=== PATIENT | female | born 1995 | race Caucasian/White ===

== ENCOUNTER 2020-07-21 12:57 | Emergency (ER) | payer BC ==
--- NOTE | 2020-07-21 13:27 | EDM.PDOC ---
ED HPI GENERAL MEDICAL PROBLEM - General Chief Complaint: General Stated Complaint: CHEST FEELING ODD Time Seen by Provider: 07/21/20 13:07 Source of Information: Reports: Patient History Limitations: Reports: No Limitations - History of Present Illness INITIAL COMMENTS - FREE TEXT/NARRATIVE: HISTORY AND PHYSICAL: History of present illness: Patient is a 25-year-old female who presents to the emergency room with complaints of "feeling strange". She states since 10 AM she has had this pulsatile feeling in her head and chest. She does mention that she recently ran out of her Cymbalta and has been without this medication for 3 days. She does feel there is a correlation. Denies any recent injury, trauma or falls. Patient denies any fever, chills, headache, change in vision, syncope or near syncope. Denies any chest pain, back pain, shortness of breath or cough. Denies any abdominal pain, nausea, vomiting, diarrhea, constipation or dysuria. No concern for . Has not noted any blood in urine or stool. Patient has been eating and drinking appropriately. Has not been around anyone who has been recently ill. Does have a history of anxiety and depression. Review of systems: As per history of present illness and below otherwise all systems reviewed and negative. Past medical history: As per history of present illness and as reviewed below otherwise noncontributory. Surgical history: As per history of present illness and as reviewed below otherwise noncontributory. Social history: See social history for further information Family history: As per history of present illness and as reviewed below otherwise noncontributory. Physical exam: General: Well developed and well nourished. Alert and orientated x 3. Nontoxic in appearance and in no acute distress. Vital signs are stable and have been reviewed by me. Nursing notes were reviewed. HEENT: Atraumatic, normocephalic, pupils equal and reactive bilaterally, negative for conjunctival pallor or scleral icterus, mucous membranes moist, TMs normal bilaterally, throat clear, neck supple, nontender, trachea midline. No drooling or trismus noted. No meningeal signs. No hot potato voice noted. Lungs: Clear to auscultation bilaterally. No wheezes, rales, or rhonchi. Chest nontender. Normal work of breathing, no accessory muscles used. Heart: S1S2, regular rate and rhythm without overt murmur, gallops, or rubs. No JVD. No peripheral edema Abdomen: Soft, nondistended, nontender. Skin: Intact, warm, dry. No lesions or rashes noted. Hematologic: No petechiae or purpra. Mucosa appropriate color and normal nail bed color and refill. Extremities: Atraumatic, moves all extremities per self without difficulty or deficits, negative for cords or calf pain. Neurovascular unremarkable. Neuro: Awake, alert, oriented. Cranial nerves II through XII unremarkable. Cerebellum unremarkable. Motor and sensory unremarkable throughout. Exam nonfocal. Psychiatric: Mood and affect are appropriate. Normal thought process. Answering questions appropriately. Notes: *This patient was seen and evaluated during the 2019 SARS-CoV-2 novel coronavirus pandemic period. Community viral transmission is ongoing at time of this encounter and the emergency department is operating under pandemic response procedures. Patient is a 25-year-old female who presents to the emergency room with complaints of generally feeling unwell feeling like she has "jolts" in her head and chest that started this morning. Coincidently she ran out of her Cymbalta 3 days ago and has not yet made an appointment to get this refilled. Patient's physical exam is unremarkable. I feel her symptoms are related to abruptly stopping the Cymbalta but will get basic lab work and give her some IV fluids. EKG is within normal limits. Basic lab work is within normal limits. Her symptoms are likely due to abruptly stopping her Cymbalta. I have talked with the patient about today's findings, in addition to providing specific details for plan of care. Reassessment at the time of disposition demonstrates that the patient is in no acute distress. The patient is stable for discharge, counseling was provided and we discussed in great detail signs and symptoms that would prompt them to return to the Emergency Department. Medication, follow up and supportive care measures were reviewed and discussed. Voices understanding and is agreeable to plan of care. Denies any further questions or concerns at this time. Diagnostics: CBC, CMP, UA Therapeutics: IV fluid, Cymbalta Prescription: Cymbalta Impression: Antidepressant discontinuation syndrome Plan: 1. You were evaluated today on an emergent basis. Your EKG and lab work is within normal limits. Your symptoms are likely withdrawal symptoms from abruptly stopping your Cymbalta. Please call your primary care provider to get the increased dose (the additional 30mg), your script is sent to pharmacy. 2. You can alternate Tylenol and ibuprofen as needed for pain and fever management. 3. We encourage you to follow up with your primary care provider and/or recommended specialist in the next few days for re-evaluation and further care/management. 4. If your symptoms should worsen, new symptoms develop or any of the signs and symptoms we discussed should arise please return to the emergency room or call 911 (if needed). Definitive disposition and diagnosis as appropriate pending reevaluation and review of above. - Related Data Allergies Allergy/AdvReac Type Severity Reaction Status Date / Time No Known Allergies Allergy Verified 07/21/20 13:28 Home Meds: Home Meds DULoxetine [Cymbalta] 60 mg PO DAILY 30 Days #30 cap 07/21/20 [Rx] ED ROS GENERAL - Review of Systems Review Of Systems: Comprehensive ROS is negative, except as noted in HPI. ED EXAM, GENERAL - Physical Exam Exam: See Below (See dictation) Course - Vital Signs Last Recorded V/S: Last Vital Signs Temp 97.1 F 07/21/20 13:29 Pulse 81 07/21/20 13:29 Resp 18 07/21/20 13:29 BP 131/68 07/21/20 13:29 Pulse Ox 99 07/21/20 13:29 - Orders/Labs/Meds Orders: Active Orders 24 hr Category Date Time Status EKG Documentation Completion [RC] STAT Care 07/21/20 13:08 Active COMPREHENSIVE METABOLIC PN,CMP [CHEM] Stat Lab 07/21/20 13:34 Ordered UA RFX JIGNESH AND CULT IF INDIC [URIN] Stat Lab 07/21/20 13:42 Received DULoxetine [Cymbalta] Med 07/21/20 13:35 Once 60 mg PO ONETIME ONE Sodium Chloride 0.9% [Normal Saline] 1,000 ml Med 07/21/20 13:34 Active IV STAT Medication Orders Duloxetine HCl (Duloxetine 60 Mg Cap) 60 mg PO ONETIME ONE Stop: 07/21/20 13:36 Last Admin: 07/21/20 13:52 Dose: 60 mg Documented by: MISSY Sodium Chloride (Normal Saline) 1,000 mls @ 999 mls/hr IV STAT ONE Stop: 07/21/20 14:34 Last Admin: 07/21/20 13:53 Dose: 999 mls/hr Documented by: MISSY Labs: Laboratory Tests 07/21/20 07/21/20 07/21/20 Range/Units 13:42 13:42 13:50 WBC 8.55 (4.0-11.0) K/uL RBC 5.29 (4.30-5.90) M/uL Hgb 14.8 (12.0-16.0) g/dL Hct 43.4 (36.0-46.0) % MCV 82.0 (80.0-98.0) fL MCH 28.0 (27.0-32.0) pg MCHC 34.1 (31.0-37.0) g/dL RDW Std Deviation 41.2 (28.0-62.0) fl RDW Coeff of Ifeanyi 14 (11.0-15.0) % Plt Count 277 (150-400) K/uL MPV 10.00 (7.40-12.00) fL Neut % (Auto) 59.8 (48.0-80.0) % Lymph % (Auto) 31.1 (16.0-40.0) % Banner % (Auto) 7.0 (0.0-15.0) % Eos % (Auto) 1.6 (0.0-7.0) % Baso % (Auto) 0.5 (0.0-1.5) % Neut # (Auto) 5.1 (1.4-5.7) K/uL Lymph # (Auto) 2.7 H (0.6-2.4) K/uL Banner # (Auto) 0.6 (0.0-0.8) K/uL Eos # (Auto) 0.1 (0.0-0.7) K/uL Baso # (Auto) 0.0 (0.0-0.1) K/uL Nucleated RBC % 0.0 /100WBC Nucleated RBCs # 0 K/uL Sodium (136-145) mmol/L Potassium (3.5-5.1) mmol/L Chloride (98-107) mmol/L Carbon Dioxide (21.0-32.0) mmol/L BUN (7.0-18.0) mg/dL Creatinine (0.6-1.0) mg/dL Est Cr Clr Drug Dosing mL/min Estimated GFR (MDRD) ml/min Glucose (74-106) mg/dL Calcium (8.5-10.1) mg/dL Total Bilirubin (0.2-1.0) mg/dL AST (15-37) IU/L ALT (14-63) IU/L Alkaline Phosphatase (46-116) U/L Total Protein (6.4-8.2) g/dL Albumin (3.4-5.0) g/dL Globulin (2.6-4.0) g/dL Albumin/Globulin Ratio (0.9-1.6) Urine Color YELLOW Urine Appearance CLEAR Urine pH 6.0 (5.0-8.0) Ur Specific [place] > 1.030 (1.001-1.035) Urine Protein NEGATIVE (NEGATIVE) mg/dL Urine Glucose (UA) NEGATIVE (NEGATIVE) mg/dL Urine Ketones NEGATIVE (NEGATIVE) mg/dL Urine Occult Blood MODERATE H (NEGATIVE) Urine Nitrite NEGATIVE (NEGATIVE) Urine Bilirubin NEGATIVE (NEGATIVE) Urine Urobilinogen 0.2 (<2.0) EU/dL Ur Leukocyte Esterase NEGATIVE (NEGATIVE) Urine RBC 4-6 (0-2/HPF) Urine WBC 0-1 (0-5/HPF) Ur Epithelial Cells FEW (NONE-FEW) Urine Bacteria FEW (NEGATIVE) Urine HCG, Qual NEGATIVE (NEGATIVE) 07/21/20 Range/Units 13:50 WBC (4.0-11.0) K/uL RBC (4.30-5.90) M/uL Hgb (12.0-16.0) g/dL Hct (36.0-46.0) % MCV (80.0-98.0) fL MCH (27.0-32.0) pg MCHC (31.0-37.0) g/dL RDW Std Deviation (28.0-62.0) fl RDW Coeff of Ifeanyi (11.0-15.0) % Plt Count (150-400) K/uL MPV (7.40-12.00) fL Neut % (Auto) (48.0-80.0) % Lymph % (Auto) (16.0-40.0) % Banner % (Auto) (0.0-15.0) % Eos % (Auto) (0.0-7.0) % Baso % (Auto) (0.0-1.5) % Neut # (Auto) (1.4-5.7) K/uL Lymph # (Auto) (0.6-2.4) K/uL Banner # (Auto) (0.0-0.8) K/uL Eos # (Auto) (0.0-0.7) K/uL Baso # (Auto) (0.0-0.1) K/uL Nucleated RBC % /100WBC Nucleated RBCs # K/uL Sodium 141 (136-145) mmol/L Potassium 4.1 (3.5-5.1) mmol/L Chloride 106 (98-107) mmol/L Carbon Dioxide 30.1 (21.0-32.0) mmol/L BUN 14 (7.0-18.0) mg/dL Creatinine 0.9 (0.6-1.0) mg/dL Est Cr Clr Drug Dosing 91.01 mL/min Estimated GFR (MDRD) > 60.0 ml/min Glucose 103 (74-106) mg/dL Calcium 8.8 (8.5-10.1) mg/dL Total Bilirubin 0.3 (0.2-1.0) mg/dL AST 11 L (15-37) IU/L ALT 26 (14-63) IU/L Alkaline Phosphatase 71 (46-116) U/L Total Protein 7.2 (6.4-8.2) g/dL Albumin 3.6 (3.4-5.0) g/dL Globulin 3.6 (2.6-4.0) g/dL Albumin/Globulin Ratio 1.0 (0.9-1.6) Urine Color Urine Appearance Urine pH (5.0-8.0) Ur Specific [place] (1.001-1.035) Urine Protein (NEGATIVE) mg/dL Urine Glucose (UA) (NEGATIVE) mg/dL Urine Ketones (NEGATIVE) mg/dL Urine Occult Blood (NEGATIVE) Urine Nitrite (NEGATIVE) Urine Bilirubin (NEGATIVE) Urine Urobilinogen (<2.0) EU/dL Ur Leukocyte Esterase (NEGATIVE) Urine RBC (0-2/HPF) Urine WBC (0-5/HPF) Ur Epithelial Cells (NONE-FEW) Urine Bacteria (NEGATIVE) Urine HCG, Qual (NEGATIVE) Meds: Medications Generic Name Dose Route Start Last Admin Trade Name Freq PRN Reason Stop Dose Admin Duloxetine HCl 60 mg 07/21/20 13:35 07/21/20 13:52 Duloxetine 60 Mg Cap PO 07/21/20 13:36 60 mg ONETIME ONE Administration Sodium Chloride 1,000 mls @ 999 mls/hr 07/21/20 13:34 07/21/20 13:53 Normal Saline IV 07/21/20 14:34 999 mls/hr STAT ONE Administration Departure - Departure Time of Disposition: 14:35 Disposition: Home, Self-Care 01 Clinical Impression: Antidepressant discontinuation syndrome Qualifiers: Encounter type: initial encounter Qualified Code(s): T43.205A - Adverse effect of unspecified antidepressants, initial encounter - Discharge Information Prescriptions: DULoxetine [Cymbalta] 60 mg PO DAILY 30 Days #30 cap Referrals: PCP,None [Primary Care Provider] - Forms: ED Department Discharge Additional Instructions: The following information is given to patients seen in the emergency department who are being discharged to home. This information is to outline your options for follow-up care. We provide all patients seen in our emergency department with a follow-up referral. The need for follow-up, as well as the timing and circumstances, are variable depending upon the specifics of your emergency department visit. If you don't have a primary care physician on staff, we will provide you with a referral. We always advise you to contact your personal physician following an emergency department visit to inform them of the circumstance of the visit and for follow-up with them and/or the need for any referrals to a consulting specialist. The emergency department will also refer you to a specialist when appropriate. This referral assures that you have the opportunity for follow-up care with a specialist. All of these measure are taken in an effort to provide you with optimal care, which includes your follow-up. Under all circumstances we always encourage you to contact your private physician who remains a resource for coordinating your care. When calling for follow-up care, please make the office aware that this follow-up is from your recent emergency room visit. If for any reason you are refused follow-up, please contact the [facility] Emergency Department at and asked to speak to the emergency department charge nurse. [facility] [address] [place] [address] [facility] [address] [place] [id number] Thank you for choosing the [facility] emergency department in Home for your medical needs today. It was a pleasure caring for you. Today you were seen in the emergency department for medical screening exam. 1. You were evaluated today on an emergent basis. Your EKG and lab work is within normal limits. Your symptoms are likely withdrawal symptoms from abruptly stopping your Cymbalta. Please call your primary care provider to get the increased dose (the additional 30mg), your script is sent to pharmacy. 2. You can alternate Tylenol and ibuprofen as needed for pain and fever management. 3. We encourage you to follow up with your primary care provider and/or recommended specialist in the next few days for re-evaluation and further care/management. 4. If your symptoms should worsen, new symptoms develop or any of the signs and symptoms we discussed should arise please return to the emergency room or call 911 (if needed). Sepsis Event Note (ED) - Focused Exam Vital Signs: Vital Signs Temp Pulse Resp BP Pulse Ox 07/21/20 13:29 97.1 F 81 18 131/68 99 - My Orders Last 24 Hours: My Active Orders 07/21/20 13:08 EKG Documentation Completion [RC] STAT 07/21/20 13:34 COMPREHENSIVE METABOLIC PN,CMP [CHEM] Stat Sodium Chloride 0.9% [Normal Saline] 1,000 ml IV STAT 07/21/20 13:35 DULoxetine [Cymbalta] 60 mg PO ONETIME ONE 07/21/20 13:42 UA RFX JIGNESH AND CULT IF INDIC [URIN] Stat - Assessment/Plan Last 24 Hours: My Active Orders 07/21/20 13:08 EKG Documentation Completion [RC] STAT 07/21/20 13:34 COMPREHENSIVE METABOLIC PN,CMP [CHEM] Stat Sodium Chloride 0.9% [Normal Saline] 1,000 ml IV STAT 07/21/20 13:35 DULoxetine [Cymbalta] 60 mg PO ONETIME ONE 07/21/20 13:42 UA RFX JIGNESH AND CULT IF INDIC [URIN] Stat
[2020-07-21] MEDS ORDERED: Sodium Chloride 0.9% 1,000 ML IV ONE (13:34)
[2020-07-21] MEDS ORDERED: DULoxetine 60 MG Cap PO ONE (13:35)
[2020-07-21 14:28] LABS: BLOOD UREA NITROGEN,BUN 14 mg/dL (7.0-18.0); CARBON DIOXIDE,CO2 30.1 mmol/L (21.0-32.0); CHLORIDE,CL 106 mmol/L (98-107); GLUCOSE RANDOM 103 mg/dL (74-106); POTASSIUM,K 4.1 mmol/L (3.5-5.1); SODIUM,NA 141 mmol/L (136-145)
== END 2020-07-21 15:22 | disposition home or self-care (01) ==
LOC: MW.ED 12:57
DX: R09.89 Other specified symptoms and signs involving the circulatory and respiratory systems (principal); T43.215A Adverse effect of selective serotonin and norepinephrine reuptake inhibitors, initial encounter
CPT/HCPCS: 36415; 80053; 81001; 81025; 85025; 93005; 99283; A9270; J7030

== ENCOUNTER 2021-03-19 17:40 | Emergency (ER) | payer BC ==
[2021-03-19] MEDS ORDERED: Sodium Chloride 0.9% 1,000 ML IV ONE (17:59)
[2021-03-19] MEDS ORDERED: Ketorolac 30 MG/ML SDV IVPUSH ONE (17:59)
[2021-03-19 18:36] LABS: BLOOD UREA NITROGEN,BUN 10 mg/dL (7.0-18.0); CARBON DIOXIDE,CO2 26.9 mmol/L (21.0-32.0); CHLORIDE,CL 103 mmol/L (98-107); GLUCOSE RANDOM 110 mg/dL (74-106); POTASSIUM,K 3.6 mmol/L (3.5-5.1); SODIUM,NA 137 mmol/L (136-145)
[2021-03-19 19:36] LABS: CORONAVIRUS COVID-19 NAA NEGATIVE (NEGATIVE); INFLUENZA A NAA NEGATIVE (NEGATIVE); INFLUENZA B NAA NEGATIVE (NEGATIVE)
== END 2021-03-19 19:50 | disposition home or self-care (01) ==
LOC: MW.ED 17:40
DX: R07.9 Chest pain, unspecified (principal); Z20.822 Contact with and (suspected) exposure to COVID-19
CPT/HCPCS: 0240U; 36415; 71045; 80053; 84484; 85025; 93005; 96374; 99285; J1885; J7030

== ENCOUNTER 2021-05-08 10:37 | Emergency (ER) | payer OTHER, BC ==
[2021-05-08] MEDS ORDERED: Lidocaine 1% 5 ML VIAL INJECT ONE (11:04)
[2021-05-08] MEDS ORDERED: Diphtheria,Pertussis(Acell),Tetanus Vaccine 0.5 ML Syringe IM ONE (11:20)
== END 2021-05-08 12:46 | disposition home or self-care (01) ==
LOC: MW.ED 10:37
DX: S61.512A Laceration without foreign body of left wrist, initial encounter (principal); Z72.0 Tobacco use; Z23 Encounter for immunization; W26.8XXA Contact with other sharp object(s), not elsewhere classified, initial encounter
CPT/HCPCS: 12002; 90471; 90715; 99282; 99282-25

== ENCOUNTER 2021-06-25 15:22 | Emergency (ER) | payer BC, OTHER ==
[2021-06-25] MEDS ORDERED: Sodium Chloride 0.9% 10 ML Syringe FLUSH PRN (16:40)
[2021-06-25] MEDS ORDERED: Sodium Chloride 0.9% 1,000 ML IV ONE (16:40)
[2021-06-25] MEDS ORDERED: Sodium Chloride 0.9% 2.5 ML Syringe FLUSH PRN (16:40)
[2021-06-25 17:39] LABS: BLOOD UREA NITROGEN,BUN 16 mg/dL (7.0-18.0); CARBON DIOXIDE,CO2 26.6 mmol/L (21.0-32.0); CHLORIDE,CL 103 mmol/L (98-107); GLUCOSE RANDOM 80 mg/dL (74-106); POTASSIUM,K 3.7 mmol/L (3.5-5.1); SODIUM,NA 139 mmol/L (136-145)
[2021-06-25] MEDS ORDERED: Cefdinir 300 MG Cap PO ONE (17:50)
== END 2021-06-25 18:45 | disposition home or self-care (01) ==
LOC: MW.ED 15:22
DX: R42 Dizziness and giddiness (principal); N39.0 Urinary tract infection, site not specified; F41.9 Anxiety disorder, unspecified; F32.A Depression, unspecified; Z79.899 Other long term (current) drug therapy
CPT/HCPCS: 36415; 80053; 81001; 84484; 84703; 85025; 93005; 96360; 99284; A9270; J3490; J7030

== ENCOUNTER 2021-07-03 13:27 | Emergency (ER) | payer BC ==
[2021-07-03] MEDS ORDERED: Sodium Chloride 0.9% 1,000 ML IV ONE (13:48)
[2021-07-03] MEDS ORDERED: cefTRIAXone 1 GM in Sodium Chloride 0.9% 50 ML IV ONE (13:49)
[2021-07-03 14:59] LABS: BLOOD UREA NITROGEN,BUN 10 mg/dL (7.0-18.0); CHLORIDE,CL 106 mmol/L (98-107); GLUCOSE RANDOM 120 mg/dL (74-106); POTASSIUM,K 3.8 mmol/L (3.5-5.1); SODIUM,NA 137 mmol/L (136-145)
== END 2021-07-03 15:55 | disposition home or self-care (01) ==
LOC: MW.ED 13:27
DX: N30.00 Acute cystitis without hematuria (principal); R04.0 Epistaxis
CPT/HCPCS: 36415; 71045; 71045-26; 80053; 81001; 81025; 84484; 85025; 85610; 85730; 87086; 93005; 96365; 99284-25; J0696; J7030

== ENCOUNTER 2024-04-22 11:05 | Emergency (ER) | payer SELFPAY ==
[2024-04-22] MEDS: Oxymetazoline 0.05% Nasal Spray 30 ML Bottle NAS ONE (11:43)
[2024-04-22] MEDS: Sodium Chloride 0.9% 1,000 ML IV ONE (12:55)
[2024-04-22 13:05] LABS: BASOPHILS ABSOLUTE AUTO 0.05 K/uL (0.00-0.20); BASOPHILS PERCENT AUTO 0.5 % (0.0-1.0); EOSINOPHILS ABSOLUTE AUTO 0.04 K/uL (0.00-0.45); EOSINOPHILS PERCENT AUTO 0.4 % (0.0-6.0); HEMATOCRIT 44.5 % (37.0-47.0); IMMATURE GRAN ABSOLUTE AUTO 0.02 K/uL (0.00-0.05); IMMATURE GRAN PERCENT AUTO 0.2 % (0.0-0.4); LYMPHOCYTES PERCENT AUTO 25.3 % (24.0-44.0); MEAN CORPUSCULAR HEMOGLOBIN 26.7 pg (28.0-32.0); MEAN CORPUSCULAR HGB CONC 33.7 g/dL (32.0-36.0); MEAN CORPUSCULAR VOLUME 79.3 fL (83.0-99.0); MEAN PLATELET VOLUME 9.5 fL (9.4-12.3); MONOCYTES ABSOLUTE AUTO 0.49 K/uL (0.00-0.80); MONOCYTES PERCENT AUTO 5.4 % (0.0-8.0); NEUTROPHILS PERCENT AUTO 68.2 % (41.0-71.0); PLATELET COUNT,PLT 281 K/uL (150-400); RED BLOOD CELL COUNT 5.61 M/uL (4.10-5.30)
[2024-04-22 13:05] LABS: APPEARANCE,URINE CLEAR; BILIRUBIN,URINE NEGATIVE (NEGATIVE); COLOR,URINE YELLOW; GLUCOSE,URINE NEGATIVE (NEGATIVE); KETONES,URINE 15 mg/dL (NEGATIVE); LEUKOCYTE ESTERASE,URINE NEGATIVE (NEGATIVE); NITRITE,URINE NEGATIVE (NEGATIVE); OCCULT BLOOD,URINE NEGATIVE (NEGATIVE); PROTEIN,URINE NEGATIVE (NEGATIVE); UROBILINOGEN,URINE 0.2 EU/dL (<2.0)
[2024-04-22 13:30] LABS: ALBUMIN 3.8 g/dL (3.4-5.0); BILIRUBIN TOTAL 0.7 mg/dL (0.2-1.0); CALCIUM 9.3 mg/dL (8.5-10.1); CARBON DIOXIDE,CO2 26.7 mmol/L (21.0-32.0); CREATININE 0.8 mg/dL (0.6-1.0); EST CRCL DRUG DOSING (CG) 102.72 mL/min; POTASSIUM,K 3.5 mmol/L (3.5-5.1); PROTEIN TOTAL,TP 7.5 g/dL (6.4-8.2)
[2024-04-22] MEDS: Acetaminophen 500 MG Tab PO ONE (14:59)
== END 2024-04-22 15:04 | disposition home or self-care (01) ==
LOC: MW.ED 11:05
DX: O99.891 Other specified diseases and conditions complicating pregnancy (principal); R04.0 Epistaxis; Z91.010 Allergy to peanuts; Z91.018 Allergy to other foods; Z75.8 Other problems related to medical facilities and other health care; Z3A.09 9 weeks gestation of pregnancy
CPT/HCPCS: 36415; 80053; 81003; 85025; 99283; A9270; J7030

== ENCOUNTER 2025-01-10 18:50 | Emergency (ER) | payer SELFPAY ==
[2025-01-10] MEDS ORDERED: Sodium Chloride 0.9% 10 ML Syringe FLUSH PRN (18:52)
[2025-01-10] MEDS ORDERED: Sodium Chloride 0.9% 2.5 ML Syringe FLUSH PRN (18:52)
[2025-01-10] MEDS: Ondansetron 4 MG/2 ML SDV IVPUSH ONE (19:08)
[2025-01-10] MEDS: Ketorolac 30 MG/ML SDV IVPUSH ONE (19:09)
[2025-01-10 19:12] LABS: BASOPHILS ABSOLUTE AUTO 0.07 K/uL (0.00-0.20); BASOPHILS PERCENT AUTO 0.5 % (0.0-1.0); EOSINOPHILS ABSOLUTE AUTO 0.04 K/uL (0.00-0.45); EOSINOPHILS PERCENT AUTO 0.3 % (0.0-6.0); IMMATURE GRAN ABSOLUTE AUTO 0.02 K/uL (0.00-0.05); IMMATURE GRAN PERCENT AUTO 0.2 % (0.0-0.4); LYMPHOCYTES ABSOLUTE AUTO 2.07 K/uL (1.00-4.80); LYMPHOCYTES PERCENT AUTO 15.8 % (24.0-44.0); MEAN PLATELET VOLUME 10.4 fL (9.4-12.3); MONOCYTES ABSOLUTE AUTO 0.69 K/uL (0.00-0.80); MONOCYTES PERCENT AUTO 5.3 % (0.0-8.0); NEUTROPHILS ABSOLUTE AUTO 10.23 K/uL (1.80-7.70); NEUTROPHILS PERCENT AUTO 77.9 % (41.0-71.0); NRBC ABSOLUTE 0.00 K/uL (0.00-0.02); NRBC PERCENT 0.0 /100WBC (0.0-0.2); PLATELET COUNT,PLT 259 K/uL (150-400); RED BLOOD CELL COUNT 5.51 M/uL (4.10-5.30); WHITE BLOOD CELL COUNT,WBC 13.12 K/uL (3.9-11.3)
[2025-01-10 19:19] LABS: INR 0.93 (0.86-1.11)
[2025-01-10 19:41] LABS: A/G RATIO 1.0 (0.9-1.6); ALANINE AMINOTRANSFERASE,ALT 20 IU/L (14-63); ASPARTATE AMNIOTRANSFERASE,AST 14 IU/L (15-37); BILIRUBIN TOTAL 0.5 mg/dL (0.2-1.0); BLOOD UREA NITROGEN,BUN 16 mg/dL (7.0-18.0); CARBON DIOXIDE,CO2 26.5 mmol/L (21.0-32.0); CHLORIDE,CL 103 mmol/L (98-107); CREATININE 1.1 mg/dL (0.6-1.0); EST CRCL DRUG DOSING (CG) 74.04 mL/min; GLUCOSE RANDOM 136 mg/dL (74-106); POTASSIUM,K 4.1 mmol/L (3.5-5.1); PRO B-TYPE NATRIUR PEPT,BNPPRO 80 pg/mL (0-125); PROTEIN TOTAL,TP 7.9 g/dL (6.4-8.2); SODIUM,NA 141 mmol/L (136-145)
[2025-01-10] MEDS: droPERidol 2.5 MG/ML SDV IVPUSH ONE (19:45)
[2025-01-10 19:48] LABS: ESTIMATED GFR 70 mL/min (>60)
[2025-01-10 20:00] LABS: APPEARANCE,URINE CLEAR; GLUCOSE,URINE NEGATIVE (NEGATIVE); OCCULT BLOOD,URINE MODERATE (NEGATIVE)
[2025-01-10 20:12] LABS: EPITHELIAL CELLS,URINE RARE (NONE-FEW)
[2025-01-10 21:05] LABS: A/G RATIO 1.0 (0.9-1.6); ALANINE AMINOTRANSFERASE,ALT 19.0 IU/L (14-63); ASPARTATE AMNIOTRANSFERASE,AST 13.0 IU/L (15-37); BILIRUBIN TOTAL 0.4 mg/dL (0.2-1.0); BLOOD UREA NITROGEN,BUN 14.0 mg/dL (7.0-18.0); CARBON DIOXIDE,CO2 26.1 mmol/L (21.0-32.0); CHLORIDE,CL 107.0 mmol/L (98-107); CREATININE 0.9 mg/dL (0.6-1.0); EST CRCL DRUG DOSING (CG) 90.5 mL/min; GLUCOSE RANDOM 99.0 mg/dL (74-106); POTASSIUM,K 3.9 mmol/L (3.5-5.1); PROTEIN TOTAL,TP 6.7 g/dL (6.4-8.2); SODIUM,NA 141.0 mmol/L (136-145)
[2025-01-10] MEDS: Iopamidol 755 MG/ML 500 ML Multipack Bottle IVPUSH STA (21:06)
[2025-01-10 21:08] LABS: ESTIMATED GFR 89.0 mL/min (>60)
[2025-01-10] MEDS: Alum Hydrox/Mag Hydrox/Simeth 15 ML, Metoclopramide 5 MG, Lidocaine 2% 5 ML PO ONE (21:39)
== END 2025-01-10 22:52 | disposition home or self-care (01) ==
LOC: MW.ED 18:50
DX: K80.20 Calculus of gallbladder without cholecystitis without obstruction (principal); I95.89 Other hypotension; R06.02 Shortness of breath; D72.829 Elevated white blood cell count, unspecified; Z91.018 Allergy to other foods; Z91.048 Other nonmedicinal substance allergy status; Z79.899 Other long term (current) drug therapy; Z79.51 Long term (current) use of inhaled steroids
CPT/HCPCS: 36415; 71045; 74177; 76705; 80053; 81001; 83036; 83605; 83690; 83735; 83880; 84484; 84703; 85025; 85610; 87428; 87651; 96361; 96374; 96375; 99285; A9270; J1790; J1885; J2270; J2405; J3490; J7030; Q9967; 99283